=== PATIENT | female | born 1955 | race Hispanic/Latino ===

== ENCOUNTER 2024-07-07 11:17 | Emergency (ER) | payer MEDICARE ==
[~2024-07-07] VITALS: Ht 160 cm; Wt 104.3 kg
--- NOTE | 2024-07-07 11:41 | ERN ---
General Chief Complaint: Chest Pain Stated Complaint: CHEST PAIN Time Seen by MD: 11:23 Time Seen by Midlevel: 11:23 Source: patient History of Present Illness Initial Comments Patient is a 69-year-old female with a past medical history of hypertension presenting to the emergency department via EMS for evaluation of chest pain. Patient reports being seen at a local urgent care proximally one week ago where she was diagnosed with a viral syndrome and acute bronchitis. She was sent home on medications and temporarily felt better however over the last couple of days she was had an increasing cough. Yesterday she developed chest pain that is worse with deep inspiration and movement. She also reports some mild shortness of breath that is worse with exertion. Denies any other symptoms at this time. Allergies: Coded Allergies: No Known Allergies (Unverified Allergy, Unknown, 07/07/24) Past Medical History Past Medical History: Hypertension Past Surgical History: Cholecystectomy Surgical History Other: BILATERAL KNEE REPLACEMENT ROS Dictation CONSTITUTIONAL: Negative except for HPI HEAD/FACE: Negative except for HPI EENT: Negative except for HPI RESPIRATORY: Negative except for HPI GASTROINTESTINAL/ABDOMINAL: Negative except for HPI GENITOURINARY: Negative except for HPI MUSCULOSKELETAL: Negative except for HPI INTEGUMENTARY: Negative except for HPI NEUROLOGICAL/PSYCH: Negative except for HPI HEMATOLOGIC/LYMPHATIC: Negative except for HPI All Systems Negative, Except as noted above. 13 point review of systems assessed and all negative except for above. Physical Exam Physical Exam Dictation Vital Signs reviewed General Appearance: Alert, oriented x 3, no acute distress, morbidly obese, productive cough during my examination Head and Face: non-traumatic. Eyes: PERRL, pink conjunctivas, eyelid no trauma, anterior chamber with arcus senilis. Ears: Pinnas intact and no signs of trauma or erythema ear canals clear and no discharge TM no erythema Nose: No discharge, no bleeding. Oropharynx: Mouth normal, tongue pink, pharynx clear,no erythema, tonsils no exudates, no abscesses noted, mucous membrane moist Neck: Supple, non-tender, no thyromegaly, no masses, no JVD, no bruits Breast:Deferred Chest:No tenderness, no crepitus, no paradoxical movement, no retractions Lungs:Clear, well-ventilated, symmetric, no rales, no wheezing, no rhonchi, no stridor, good breath sounds bilaterally Heart: Regular rate, regular rhythm, no murmur, no gallops Vascular: no peripheral edema, Abdomen: Soft, positive bowel sounds, nondistended, no guarding, nontender, no rebound, no masses no hepatomegaly, no splenomegaly, no Emerson's sign, no hernias. Rectal: Deferred Genital: Deferred Neurological: Normal speech, motor function intact, sensory function intact Musculoskeletal: Neck nontender, full range of motion, back nontender, full range of motion, Extremities: nontender, full range of motion Skin: Color pink, dry, no turgor, no rash, no lacerations, no abrasions, no contusions. Lymphatic: Deferred Results Laboratory and Microbiology Lab and Micro Result Laboratory Tests Test 07/07/24 11:40 07/07/24 12:04 07/07/24 12:37 07/07/24 15:04 White Blood Count 12.8 K/uL (4.8-10.8) H Red Blood Count 4.21 MIL/uL (4.00-5.50) Hemoglobin 12.8 g/dL (12.0-16.0) Hematocrit 37.9 % (36-48) Mean Corpuscular Volume 90.0 fL (79-99) Mean Corpuscular Hemoglobin 30.4 pg (27.0-33.0) Mean Corpuscular Hemoglobin Concent 33.8 g/dL (32.0-36.0) Red Cell Distribution Width 13.4 % (11.0-15.5) Platelet Count 304 K/uL (130-400) Mean Platelet Volume 9.9 fL (7.5-10.5) Immature Granulocyte % (Auto) 0.5 % (0-1) Neutrophils (%) (Auto) 72.4 % (40.0-77.0) Lymphocytes (%) (Auto) 15.8 % (21.0-51.0) L Monocytes (%) (Auto) 10.7 % (3.0-13.0) Eosinophils (%) (Auto) 0.2 % (0.0-8.0) Basophils (%) (Auto) 0.4 % (0.0-5.0) Neutrophils # (Auto) 9.3 K/uL (1.8-7.7) H Lymphocytes # (Auto) 2.0 K/uL (1.0-4.8) Monocytes # (Auto) 1.4 K/uL (0.1-1.0) H Eosinophils # (Auto) 0.03 K/uL (0.00-0.70) Basophils # (Auto) 0.05 K/uL (0.00-0.20) Absolute Immature Granulocyte (auto 0.06 K/uL (0-1) Nucleated Red Blood Cells 0.0 % (0.0-0.19) Sodium Level 137 mmol/L (136-145) Potassium Level 3.4 mmol/L (3.5-5.1) L Chloride Level 102 mmol/L (101-111) Carbon Dioxide Level 26 mmol/L (21-32) Blood Urea Nitrogen 7 mg/dL (7-18) Creatinine 0.5 mg/dL (0.5-1.0) Glomerular Filtration Rate Calc 100 mL/min (>90) Random Glucose 120 mg/dL (70-105) H Total Calcium 8.8 mg/dL (8.5-10.1) Total Creatine Kinase 92 U/L (21-232) Troponin I High Sensitivity 7 ng/L (4-50) 8 ng/L (4-50) B-Type Natriuretic Peptide 70 pg/mL (0-100) Troponin I < 0.05 ng/mL (0.00-0.05) Urine Color LIGHT-YELLOW (YELLOW) Urine Appearance CLEAR (CLEAR) Urine pH 8.0 (5.0-8.0) Urine Specific [place] 1.008 (1.001-1.031) Urine Protein NEGATIVE mg/dL (NEGATIVE) Urine Glucose (UA) NEGATIVE mg/dL (NEGATIVE) Urine Ketones NEGATIVE mg/dL (NEGATIVE) Urine Occult Blood NEGATIVE (NEGATIVE) Urine Nitrate NEGATIVE (NEGATIVE) Urine Bilirubin NEGATIVE mg/dL (NEGATIVE) Urine Urobilinogen 0.2 mg/dL (0.2-1.0) Urine Leukocyte Esterase NEGATIVE Erica/uL Labs Reviewed?: Yes EKG/XRAY/US/CT/MRI EKG Comment Date: 07/07/2024 Time: 10:57 AM Ventricular rate: 89bpm IL interval: 147 QRS duration: 141 QT/QTc: 386/469 EKG interpretation: Normal sinus rhythm with a ventricular rate of 89 beats per minute, right bundle branch block, no STEMI Reviewed by ED Attending MDM MDM: Patient is a 69-year-old female with a past medical history of hypertension presenting to the emergency department via EMS for evaluation of chest pain. Patient reports being seen at a local urgent care proximally one week ago where she was diagnosed with a viral syndrome and acute bronchitis. She was sent home on medications and temporarily felt better however over the last couple of days she was had an increasing cough. Yesterday she developed chest pain that is worse with deep inspiration and movement. She also reports some mild shortness of breath that is worse with exertion. Denies any other symptoms at this time. On physical examination the patient is in mild distress secondary to chest wall pain. The pain is reproducible with movement especially when she attempts to get up. Pain is also reproducible with palpation of the anterior chest wall. No obvious signs of external trauma. Blood work today is stable. Chemistries are unremarkable. Cardiac enzymes are negative. Two sets of troponins are negative. EKG does not show any evidence of a STEMI. Patient was observed in the ER for over 4 hours and has remained stable. Differential diagnosis: Costochondritis, ACS, electrolyte abnormality There are no social concerns with this patient. Prescription drug management Prescriptions will include: Toradol Medical management and examination interpretation discussions were had by me with other qualified healthcare professionals as indicated for the patient's care. ED Course Orders Procedure Category Date Status Time Vital Signs Per CPOE 07/07/24 Transmitted Routine 11:23 B-Type Natriuretic LAB 07/07/24 Complete Peptide 11:23 Chest 1vw RAD 07/07/24 Resulted 11:23 12 Lead Ekg Tracing- EKG 07/07/24 Complete Technical 11:23 Oxygen By Nc/Pulse Ox CPOE 07/07/24 Transmitted 11:23 Maintain Iv CPOE 07/07/24 Transmitted 11:23 Iv Insertion CPOE 07/07/24 Transmitted 11:23 Cardiac Monitoring CPOE 07/07/24 Transmitted 11:23 Pulse Oximetry With CPOE 07/07/24 Transmitted Vs And Prn 11:23 Cbc With Differential LAB 07/07/24 Complete 11:23 Activity: Br W/Brp CPOE 07/07/24 Transmitted With Assist 11:23 Creatine Kinase, Total LAB 07/07/24 Complete 11:23 Urinalysis Profile LAB 07/07/24 Complete 11:23 Troponin Poc Order LAB 07/07/24 Complete Only 11:23 Bedside Troponin-I LAB.ER 07/07/24 In Process (Poc) 11:23 Basic Metabolic Panel LAB 07/07/24 Complete 11:23 Troponin I High LAB 07/07/24 Complete Sensitivity 11:29 Ketorolac PHA 07/07/24 Complete Tromethamine 15mg/Ml 13:00 Troponin I High LAB 07/07/24 Complete Sensitivity 13:34 Current Medications Medications (Trade) Dose Ordered Sig/Joaquin Route PRN Reason Start Time Stop Time Status Last Admin Dose Admin Ketorolac Tromethamine (toRADol) 15 mg ONCE ONCE IV 07/07/24 13:00 07/07/24 13:01 DC 07/07/24 12:51 Vital Signs Date Time Temp Pulse Resp B/P (MAP) Pulse Ox O2 Delivery O2 Flow Rate FiO2 07/07/24 12:44 97.9 85 18 176/94 97 Room Air* 0 21 07/07/24 11:20 98.2 91 20 183/85 97 Room Air 0 [place] [address] [place] [id number] IMAGING REPORT Signed PATIENT: CHARBEL GUIDO MR#: [id number] : 1955 SEX: F AGE: 69 LOCATION: [facility] ORDER 23 STATUS: [facility] ER REPORT#: [id number] SERVICE 22 REASON: CHEST PAIN ORDERING PHYSICIAN: JANES FITCH PROCEDURE: CXR1VW - CHEST 1VW Exam Type: CHEST 1VW Clinical Information: CHEST PAIN Comparison: None Findings: The lungs are clear of infiltrates. The heart is normal in size. The bony and soft tissue structures of the chest are unremarkable. Impression: Clear lungs. DICTATED BY: BERNIE CRESPO MD DATE: 07/07/241324 ELECTRONICALLY SIGNED BY: BERNIE CRESPO MD DATE: 07/07/241327 DX & DISP Disposition: Discharge Departure Impression: Primary Impression: Non-cardiac chest pain Additional Impression: Costochondritis Condition: Stable Additional Instructions: Your blood work today is unremarkable. Your chest x-ray is normal. Your EKGs does not show any evidence of a heart attack. Your two sets of cardiac enzymes are negative. Please follow up with your primary care doctor for further evaluation. It appears your symptoms are musculoskeletal in nature. Return to the ER if you develop any new or worsening symptoms Time of Disposition: 16:03 I have reviewed the case, and I agree with, Diagnosis and Plan I performed the substantive portion of the visit. I have reviewed and personally made and approve the management plan that is documented in the note by myself or the HENRIETTA. I acknowledge for responsibility for the patient's management plan. JANES FITCH Jul 07, 2024 11:41
[2024-07-07 12:00] LABS: CREATININE 0.5 mg/dL (0.5-1.0); POTASSIUM 3.4 mmol/L (3.5-5.1)
[2024-07-07 12:15] LABS: B-TYPE NATRIURETIC PEPTIDE 70 pg/mL (0-100)
[2024-07-07 12:17] LABS: BASOPHILS # (AUTO) 0.05 K/uL (0.00-0.20); BASOPHILS % (AUTO) 0.4 % (0.0-5.0); EOSINOPHILS # (AUTO) 0.03 K/uL (0.00-0.70); EOSINOPHILS % (AUTO) 0.2 % (0.0-8.0); HEMATOCRIT 37.9 % (36-48); IMMATURE GRANULOCYTE ABSOLUTE 0.06 K/uL (0-1); LYMPHOCYTES % (AUTO) 15.8 % (21.0-51.0); MEAN CORPUSCULAR HEMOGLOBIN 30.4 pg (27.0-33.0); MEAN CORPUSCULAR HGB CONC 33.8 g/dL (32.0-36.0); MONOCYTES # (AUTO) 1.4 K/uL (0.1-1.0); MONOCYTES % (AUTO) 10.7 % (3.0-13.0); NEUTROPHILS # (AUTO) 9.3 K/uL (1.8-7.7); NEUTROPHILS % (AUTO) 72.4 % (40.0-77.0); PLATELET COUNT (AUTO) 304 K/uL (130-400); RED BLOOD CELL COUNT(AUTO) 4.21 MIL/uL (4.00-5.50); RED CELL DISTRIBUTION WIDTH 13.4 % (11.0-15.5); WHITE BLOOD COUNT (AUTO) 12.8 K/uL (4.8-10.8)
[2024-07-07] MEDS: ketOROlac 15MG/ML VIAL (15MG/ML) IV ONE (12:51)
[2024-07-07 13:01] LABS: APPEARANCE,URINE CLEAR (CLEAR); BILIRUBIN,URINE NEGATIVE (NEGATIVE); COLOR,URINE LIGHT-YELLOW (YELLOW); GLUCOSE, URINE (UA) NEGATIVE (NEGATIVE); KETONES,URINE NEGATIVE (NEGATIVE); LEUKOCYTE ESTERASE ,URINE NEGATIVE Leu/uL (NEGATIVE); NITRATE,URINE NEGATIVE (NEGATIVE); OCCULT BLOOD,URINE NEGATIVE (NEGATIVE); PROTEIN,URINE NEGATIVE (NEGATIVE); UROBILINOGEN,URINE 0.2 mg/dL (0.2-1.0)
[2024-07-07 13:04] LABS: ADD UA MICROSCOPIC NO
--- NOTE | 2024-07-07 13:28 | HMCIMG ---
Exam Type: CHEST 1VW Clinical Information: CHEST PAIN Comparison: None Findings: The lungs are clear of infiltrates. The heart is normal in size. The bony and soft tissue structures of the chest are unremarkable. Impression: Clear lungs.
--- NOTE | 2024-07-07 15:19 | EKG ---
[facility] Test Date: 2024-07-07 Test Time: 10:57:58 Pat Name: CHARBEL GUIDO Department: ED Room: Gender: F Lpn Or Medical Assistant: [id number] : 1955 Requested By: JANES FITCH Order Number: [id number] Reading MD: Augie Kaba Measurements Intervals [place] Rate: 89 P: 12 VT: 147 QRS: 0 QRSD: 141 T: -1 QT: 386 QTc: 469 Interpretive Statements Sinus rhythm Right bundle branch block No previous ECG available for comparison Electronically Signed On 07-08-2024 14:55:47 BODS DEVELOPER by Augie Kaba Please click the below link to view image of tracing.
[2024-07-07 16:29] VITALS: BP 155/73; PULSE 76; RESP 17; TEMP 98.1; O2SAT 97
== END 2024-07-07 16:48 | disposition home or self-care (01) ==
LOC: EDH 11:17
DX: R07.89 Other chest pain (principal); M94.0 Chondrocostal junction syndrome [Tietze]; I10 Essential (primary) hypertension; Z90.49 Acquired absence of other specified parts of digestive tract; Z96.653 Presence of artificial knee joint, bilateral
CPT/HCPCS: 99285; 71045; 82550; 84484 ×3; 80048; 83880; 85025; 81003; 36415; 96372; 93005; J1885